=== PATIENT | female | born 1990 | race Caucasian/White ===

== ENCOUNTER 2017-01-14 16:32 | Observation (INO) | payer OTHER ==
[~2017-01-14] VITALS: Ht 162.6 cm; Wt 62.5 kg
[~2017-01-14 16:32] MED LIST: ADDERALL20 MG PO; ASPIR-TRIN325 MG PO; IMITREX50 MG PO; KEFLEX500 MG PO; KEPPRA500 MG PO; KLONOPIN0.5 M1 NG; LEXAPRO20 MG PO; Motrin PO; NEURONTIN300 MG PO; Percocet 5/325,Endoc PO; SEROQUEL50 MG PO; TOPAMAX50 MG PO
[2017-01-14 17:44] LABS: ADD MIUA? YES; BILIRUBIN NEGATIVE; BLOOD NEGATIVE; COLOR STRAW ((YELLOW)); GLUCOSE (STRIP) >=500; KETONES NEGATIVE; LEUKOCYTES TRACE; NITRITE NEGATIVE; PROTEIN (STRIP) NEGATIVE; SPECIFIC GRAVITY 1.011 (1.000-1.030); UROBILINOGEN 0.2 MG/DL (0.2-1.0)
[2017-01-14 17:45] LABS: HEMATOCRIT 45.2 % (36.0-46.0); MCH 28.5 PG (29.0-34.0); MCHC 32.1 G/DL (30.0-36.0); MEAN PLAT.VOLUME 9.2 uM^3 (9.5-12.4); PLATELET COUNT 403 K/uL (156-360); RBC DIS.WIDTH-CV 14.9 % (11.8-14.6); RBC DIS.WIDTH-SD 49.1 % (39-53); RED BLOOD COUNT 5.08 M/uL (3.80-5.20); WHITE BLOOD COUNT 27.8 K/uL (4.1-10.2)
[2017-01-14 17:49] LABS: BACTERIA RARE /HPF; EPITHELIAL CELLS 1+ /HPF; HYALINE CASTS 0-5 /LPF; MUCUS TRACE /LPF; RED BLOOD CELLS 0-5 /HPF (0-5); WHITE BLOOD CELLS 15-20 /HPF (0-5)
[2017-01-14 17:54] LABS: CHLORIDE 106 mEq/L (99-109); POTASSIUM 4.7 mEq/L (3.7-5.4); SODIUM 142 mEq/L (136-147)
[2017-01-14 17:56] LABS: GLUCOSE 119 mg/dL (70-99)
[2017-01-14 17:57] LABS: ANION GAP 13 MEQ/L (2-14)
[2017-01-14 17:58] LABS: TOTAL BILIRUBIN 0.3 mg/dL (0.0-1.0)
[2017-01-14 18:00] LABS: ALKALINE PHOSPHATASE 66 IU/L (3-129); GFR ESTIMATE (CALCULATED) > 59 mL/min/
[2017-01-14 18:01] LABS: UREA NITROGEN (BUN) 17 mg/dL (9-23)
[2017-01-14 18:03] LABS: AMPHETAMINE NEGATIVE (500 ng/mL); BARBITURATES NEGATIVE (200 ng/mL); BENZODIAZEPINES PRESUMPTIVE POSITIVE (150 ng/mL); COCAINE NEGATIVE (150 ng/mL); INTERNAL CONTROLS VALID? YES; METHADONE NEGATIVE (200 ng/mL); METHAMPHETAMINE NEGATIVE (500 ng/mL); OPIATES (MORPHINE) PRESUMPTIVE POSITIVE (100 ng/mL); OXYCODONE NEGATIVE (100 ng/mL); PHENCYCLIDINE NEGATIVE (25 ng/mL); PROPOXYPHENE NEGATIVE (300 ng/mL); THC CANNABINOIDS PRESUMPTIVE POSITIVE (50 ng/mL); TRICYCLIC ANTIDEPRESSANTS NEGATIVE (300 ng/mL)
[2017-01-14 18:04] LABS: ADD MEDTOX COMMENT Y
[2017-01-14 18:06] LABS: TROP-I INTERPRETATION NEGATIVE; TROPONIN-I < 0.01 ng/mL (0.0-0.30)
[2017-01-14 18:26] LABS: BENZODIAZEPINES, URINE SCREEN POSITIVE (200 ng/mL)
[2017-01-14 18:55] LABS: SERUM ETHYL ALCOHOL < 10 mg/dL
[2017-01-14 18:57] LABS: SALICYLATE < 5.0 MG/DL (15-30)
[2017-01-14 19:04] LABS: QUANTITATIVE HCG < 4.0 MIU/ML
[2017-01-14] MEDS ORDERED: KEPPRA750 MG PO (20:39)
[2017-01-14 20:40] VITALS: BP 125/58
[2017-01-14] MEDS ORDERED: SEROQUEL50 MG PO (20:40)
[2017-01-14] MEDS ORDERED: KLONOPIN1 MG PO (20:40)
[2017-01-14] MEDS ORDERED: BUSPAR10 MG PO (20:40)
[2017-01-14] MEDS ORDERED: LEXAPRO20 MG PO (20:40)
[2017-01-14] MEDS ORDERED: ADDERALL XR 2020 MG PO (20:40)
[2017-01-14 22:10] VITALS: BP 125/58
[2017-01-14] MEDS ORDERED: ZANTAC150 MG PO (23:11)
[2017-01-14] MEDS ORDERED: MOTRIN800 MG PO (23:12)
[2017-01-15 01:36] LABS: TROP-I INTERPRETATION NEGATIVE; TROPONIN-I < 0.01 ng/mL (0.0-0.30)
[2017-01-15 04:37] VITALS: BP 92/54
[2017-01-15 06:42] LABS: ANION GAP 4 MEQ/L (2-14); CHLORIDE 110 MEQ/L (99-109); GFR ESTIMATE (CALCULATED) > 59 mL/min/; GLUCOSE 82 mg/dL (70-99); POTASSIUM 3.9 MEQ/L (3.7-5.4); SAMPLE HEMOLYSIS CHECK 0; SAMPLE ICTERIC CHECK 0; SAMPLE LIPEMIA CHECK 0; SODIUM 142 MEQ/L (136-147); TROP-I INTERPRETATION NEGATIVE; TROPONIN-I 0.01 ng/mL (0.0-0.30); UREA NITROGEN (BUN) 16 mg/dL (9-23)
[2017-01-15 07:33] LABS: HEMATOCRIT 34.2 % (36.0-46.0); MCH 29.4 PG (29.0-34.0); MCV 89.1 FL (83-99); RBC DIS.WIDTH-CV 15.2 % (11.8-14.6); RBC DIS.WIDTH-SD 50.2 % (39-53)
[2017-01-15 07:40] LABS: RED BLOOD COUNT 3.84 M/uL (3.80-5.20)
[2017-01-15 07:41] VITALS: BP 109/56
[2017-01-15 08:03] LABS: MEAN PLAT.VOLUME 9.6 uM^3 (9.5-12.4)
[2017-01-15 08:10] LABS: PLATELET COUNT 263 K/uL (156-360)
[2017-01-15 11:10] VITALS: BP 95/52
== END 2017-01-15 15:38 | disposition left against medical advice (07) ==
LOC: EME 16:32 → 4EAST 20:26 → EDOF 20:26 → 4EAST 22:08
PROVIDERS: Hospitalist; Nurse Practitioner Family
DX: T40.1X1A Poisoning by heroin, accidental (unintentional), initial encounter (principal); I48.0 Paroxysmal atrial fibrillation; G40.909 Epilepsy, unspecified, not intractable, without status epilepticus; F19.90 Other psychoactive substance use, unspecified, uncomplicated; T42.6X6A Underdosing of other antiepileptic and sedative-hypnotic drugs, initial encounter; Z91.128 Patient's intentional underdosing of medication regimen for other reason; D72.829 Elevated white blood cell count, unspecified; N39.0 Urinary tract infection, site not specified; R79.89 Other specified abnormal findings of blood chemistry; F17.210 Nicotine dependence, cigarettes, uncomplicated; Z87.820 Personal history of traumatic brain injury; Z88.8 Allergy status to other drugs, medicaments and biological substances
CPT/HCPCS: 71020; 80048; 80053; 81003; 84443; 84484; 84702; 84999; 85027; 93005; 93306; 99281; 99285; G0378; G0480; J1650; J1885; J2310; J7030